=== PATIENT | male | born 1990 | race Hispanic/Latino ===

== ENCOUNTER 2016-12-05 14:15 | Emergency (ER) | payer OTHER ==
--- NOTE | 2016-12-05 14:47 | ED PDOC ---
HPI: General Adult Time Seen by Provider: 12/05/16 14:42 Chief Complaint (Nursing): Dizziness/Lightheaded Chief Complaint (Provider): feeling "not with it" History Per: Patient History/Exam Limitations: no limitations Additional Complaint(s): 25yo male reports feeling dizzy and hot since 1230 today. Also complains of nausea. States he feels worse when turning head side to side. Describes feeling "not totally with it". No chest pain, palpitations. States he took Adderall 10mg this morning which he is not prescribed but takes "every so often" for work. Also reports taking "a vitamin" and Advil as well. States he used to take medication for hypertension in high school because he would get himself "worked up". Past Medical History Reviewed: Historical Data, Nursing Documentation, Vital Signs Vital Signs: Last Vital Signs Temp 97 F L 12/05/16 14:22 Pulse 82 12/05/16 14:22 Resp 18 12/05/16 14:22 BP 151/97 H 12/05/16 14:22 Pulse Ox 99 12/05/16 14:56 - Medical History PMH: HTN - Family History Family History: States: Unknown Family Hx - Allergies Allergies/Adverse Reactions: Allergies Allergy/AdvReac Type Severity Reaction Status Date / Time No Known Allergies Allergy Verified 12/05/16 14:21 Review of Systems ROS Statement: Except As Marked, All Systems Reviewed And Found Negative Constitutional: Negative for: Fever Cardiovascular: Negative for: Chest Pain, Palpitations, Light Headedness Neurological: Positive for: Dizziness Physical Exam - Reviewed Nursing Documentation Reviewed: Yes Vital Signs Reviewed: Yes - Physical Exam Appears: Positive for: Well, Non-toxic, No Acute Distress Head Exam: Positive for: ATRAUMATIC, NORMAL INSPECTION, NORMOCEPHALIC Skin: Positive for: Warm, Dry Eye Exam: Positive for: EOMI, PERRL Cardiovascular/Chest: Positive for: Regular Rate, Rhythm Respiratory: Positive for: Normal Breath Sounds. Negative for: Rales, Rhonchi, Wheezing Gastrointestinal/Abdominal: Positive for: Soft. Negative for: Tenderness Extremity: Positive for: Normal ROM Neurologic/Psych: Positive for: Alert, Oriented (x3). Negative for: Motor/ Sensory Deficits - Laboratory Results Result Diagrams: 12/05/16 15:00 12/05/16 15:00 - ECG O2 Sat by Pulse Oximetry: 99 (RA) Pulse Ox Interpretation: Normal Medical Decision Making Medical Decision Makin: EKG, Labs ordered. Disposition - Clinical Impression Clinical Impression: Medication reaction - Patient ED Disposition Is Patient to be Admitted: No Counseled Patient/Family Regarding: Studies Performed, Diagnosis, Need For Followup - Disposition [facility]errals: [facility] [Outside] Disposition: Routine/Home Disposition Time: 16:43 Condition: FAIR Instructions: Lightheadedness (ED) Additional Comments - Additional Comments Additional Comments: Scribe Attestation: Documented by Lowell Lara acting as a scribe for Yuri Schmidt MD. Scribe Attestation: All medical record entries made by the Scribe were at my direction and personally dictated by me. I have reviewed the chart and agree that the record accurately reflects my personal performance of the history, physical exam, medical decision making, and the department course for this patient. I have also personally directed, reviewed, and agree with the discharge instructions and disposition.
[2016-12-05 15:20] LABS: BASO % 0.7 % (0.0-2.0); EOS % 0.8 % (0.0-4.0); LYMPH # 1.3 K/uL (1.0-4.3); LYMPH % 23.4 % (20.0-40.0); MEAN CELL VOLUME 89.7 fl (80.0-94.0); MEAN CORPUSCULAR HEMOGLOBIN 30.8 pg (27.0-31.0); MEAN CORPUSCULAR HGB CONC 34.4 g/dL (33.0-37.0); MONO # 0.5 K/uL (0.0-0.8); MONO % 9.4 % (0.0-10.0); NEUT # 3.8 K/uL (1.8-7.0); NEUT % 65.7 % (50.0-75.0); NRBC % 0.1 % (0.0-0.0); RED CELL DISTRIBUTION WIDTH 13.3 % (11.5-14.5); WHITE BLOOD COUNT 5.7 K/uL (4.8-10.8)
[2016-12-05 15:38] LABS: ALKALINE PHOSPHATASE 89 U/L (38-126); ALT/SGPT 32 U/L (21-72); AST/SGOT 42 U/L (17-59); BILIRUBIN,TOTAL 0.6 mg/dl (0.2-1.3); BLOOD UREA NITROGEN 16 mg/dl (9-20); CALCIUM 9.9 mg/dL (8.4-10.2); CARBON DIOXIDE 26 mmol/L (22-30); CHLORIDE 102 mmol/L (98-107); GFR AFRICAN-AMERICAN > 60; GLUCOSE,RANDOM 117 mg/dL (75-110); POTASSIUM 3.9 MMOL/L (3.6-5.0); SODIUM 145 mmol/l (132-148); TOTAL PROTEIN 8.8 G/DL (6.3-8.2)
[2016-12-05 15:43] LABS: ALB/GLOB RATIO 1.1 (1.0-2.1)
[2016-12-05 17:05] VITALS: BP 143/82; PULSE 70; RESP 20; TEMP 98.5; O2SAT 100
--- NOTE | 2016-12-06 08:29 | CARD ---
APPROVED REPORT EKG Measurement Heart [id number] <Conclusion> Normal sinus rhythm Incomplete right bundle branch block Borderline ECG
== END 2016-12-05 17:06 | disposition home or self-care (01) ==
LOC: H.ER 14:15
DX: R42 Dizziness and giddiness (principal); I10 Essential (primary) hypertension; I45.10 Unspecified right bundle-branch block; R11.0 Nausea